=== PATIENT | male | born 1955 | race Caucasian/White ===

== ENCOUNTER → 2019-11-19 11:05 | Outpatient (BNVA) | payer MEDICARE, OTHER, SELFPAY | PROVIDERS: Family Provider Internal Medicine; PCP Internal Medicine; Referring Provider Internal Medicine; Visit Provider Specialist | DX: M25.512 Pain in left shoulder (principal); M19.012 Primary osteoarthritis, left shoulder | CPT/HCPCS: 73030 ==

== ENCOUNTER 2019-12-18 07:27 | Day surgery (SDC) | payer MEDICARE, OTHER, SELFPAY ==
[2019-12-17 14:11] VITALS: BMI 44.5
[2019-12-18] VITALS (14 sets, daily range): BP systolic 134–160; BP diastolic 78–103; PULSE 83–99; RESP 12–22; TEMP 36.4–36.8; O2SAT 92–98
[2019-12-18] MEDS: sodium chloride 0.9% 1,000 ML 30 ML IV (08:21)
[2019-12-18] MEDS: CELEcoxib 200 mg Capsule 400 MG PO (08:21)
[2019-12-18] MEDS: vancomycin 1,000 MG in sodium chloride 0.9% 250 ML 250 MG IV (08:46)
--- NOTE | 2019-12-18 08:52 | ANES.PREANE2 ---
Pre-Anesthetic Assessment Pre-Anesthetic Assessment: Height/Weight: Height 1.88 m Weight 157.397 kg Temp Pulse Resp BP Pulse Ox 98.3 F 97 18 141/103 95 12/18/19 08:10 12/18/19 08:10 12/18/19 08:10 12/18/19 08:10 12/18/19 08:10 Preop Diagnosis: Left shoulder partial rotator cuff tear and impingement Proposed Procedure: Operation Date: 12/18/19 09:40 Proposed Procedures p Shoulder Arthroscopy(Left) - Keren Ortiz MD s Debridement Upper Extremity(Left) - Keren Ortiz MD s Acromioplasty/open(Not Applicable) - MD sujey Holcomb Distal Clavicle Resection(Not Applicable) - Keren Ortiz MD s Rotator Cuff Repair(Left) - Keren Ortiz MD Last intake: Intake Last Liquid Date 12/17/19 Last Liquid Time 21:00 Last Solid Date 12/17/19 Last Solid Time 21:00 Social: Pack years: 4 Comment: quit 24 Exam: Pre-Anes Outpt Exam: alert, oriented x 3, clear to auscultation bilaterally and regular rate & rhythm Airway: Submandibular: WNL Cervical ROM: WNL MP: 2 CV/HEM: CV/HEM: HTN (14 y) : Comments: s/p nephrectomy living related onor Metabolic: Metabolic: Morbid obesity Anesthetic Plan: ASA status: 3 Meds/Allergies Current Medications: Current Medications Generic Name Dose Route Start Last Admin Trade Name Freq PRN Reason Stop Dose Admin Sodium Chloride 1,000 mls @ 30 ml s/hr 12/18/19 08:00 12/18/19 08:21 Sodium Chloride 0.9% IV 12/19/19 07:59 30 mls/hr .Q24H RAMOS Administration Vancomycin HCl 1,0 00 mg/ 250 mls @ 250 mls /hr 12/18/19 08:30 12/18/19 08:46 Sodium Chloride IV 12/18/19 09:29 250 mls/hr ONCE ONE Administration Protocol PFSH Anesthesia PFSH: Social History Smoking and tobacco status: never smoked Alcohol intake: never Data Anesthesia Cardiac Studies: No Data to Display
[2019-12-18] MEDS: fentaNYL 50 mcg/mL INJ 2mL 100 MCG IVP (09:15)
[2019-12-18] MEDS: midazolam 1 mg/mL INJ 5 ML 5 MG IVP (09:15)
--- NOTE | 2019-12-18 09:25 | ANES.PROC ---
Anesthesia Procedures Procedure/Date: 12/18/19 Left innerscalene block Procedure Narrative: R&B's of left innerscalene block for left shoulder surgery postop pain control disc'd. Verbal and written consent obtained. Versed 2+1+1+1mg, Fentanyl 50ug. US utilized to identify left innerscalene groove, LUL. Nerve stimulator used at 0.8mAMPs. Ropvicaine 0.5% + Lido 2% with epi in 3:1 mixture in 5cc increments for a total volume of 40cc. Nerve Block ^: Nerve Block 1: Main Anesthesia: general anesthesia Time Out Performed: Yes Consent: requested by attending/covering physician, from patient, risks and benefits reviewed and patient agrees to proceed Nerve block location: interscalene Anesthesia monitors applied: pulse oximetry and oxygen Nerve block position: supine Anesthetic Used: lidocaine 2% and with epi Amount of anesthesia used (mL): 40 Ultrasound used to: visualize and ID interscalene groove Nerve Stimulator Used?: Yes Interscalene/Femoral BLK: 2 stimuplex 22 g needle used for position and inplane approach Injection: neg aspiration of heme Patient Tolerated Procedure: well Complications: none
--- NOTE | 2019-12-18 09:55 | W.PM.OPSUD ---
Surgery/Procedure H&P Update DATE OF PROCEDURE: December 18, 2019 DATE H&P PERFORMED: 12/17/19 H&P UPDATE INFORMATION: I have reviewed H&P completed within last 30 days, I have examined patient prior to procedure and H&P is in [facility] [place] on date indicated PREOP DIAGNOSIS: Left shoulder partial rotator cuff tear and impingement PLANNED PROCEDURE: Operation Date: 12/18/19 09:40 Proposed Procedures p Shoulder Arthroscopy(Left) - Keren Ortiz MD s Debridement Upper Extremity(Left) - Keren Ortiz MD s Acromioplasty/open(Not Applicable) - Keren Ortiz MD s Distal Clavicle Resection(Not Applicable) - Keren Ortiz MD s Rotator Cuff Repair(Left) - Keren Ortiz MD
--- NOTE | 2019-12-18 12:05 | P.OP_ITS ---
Operative Report Date of procedure: December 18, 2019 Pre-op Diagnosis: Left shoulder partial rotator cuff tear, impingement, biceps tendinitis, DJD acromioclavicular joint, and labral tear Post-op Diagnosis: Left shoulder rotator cuff tear, impingement, biceps tendinit is, DJD acromioclavicular joint, and labral tear Procedure Done: Left shoulder open rotator cuff repair, acromioplasty, distal clavicle resection, biceps tenodesis, and arthroscopic debridement of labrum. Pathology: none sent Surgeon: Keren Ortiz [employer] Teacher: [facility] [place] Anesthesia: General (Intubated with interscalene block) Estimated blood loss (mL): 25 IV fluids (mL): 1,200 Complications: None Findings: Significant impingement with acromioclavicular joint degenerative osteoarthritis, complete rotator cuff tear over the biceps tendon, labral tear, and degenerative changes of the glenoid. Condition: stable Disposition: PACU (Then home with family) Brief History: This 64-year-old gentleman presented with the above complaints and findings on MRI. The patient had significant pain and limitations in his activities of daily living. He wished to proceed with operative intervention. Risks and complications were discussed with him, and the patient consented to proceed with surgical intervention. Procedure: The patient was brought to the operating theater and underwent general intubated anesthesia following an interscalene block placed in the preoperative holding area. The patient was placed in a beachchair position and subsequently the left upper extremity was prepped and draped in the usual fashion utilizing DuraPrep. The arm was draped free. A surgical pause was performed prior to commencement of the surgical procedure. At the time of the surgical pause, we confirmed the site and side of surgery as well as administration of appropriate preoperative antibiotics vancomycin 1 g. MRI was also reviewed at that time. Following the surgical pause, a spinal needle was placed into the shoulder joint and the shoulder was filled with lactated Ringer's. An arthroscopic evaluation was then accomplished. At the time of the arthroscopic evaluation, we found diffuse labral tearing. There were also degenerative changes over the glenoid, but there were not significant degenerative changes of the humeral head. There was no obvious biceps tendon tear. There was no obvious labral detachment. The shaver was then introduced and the labrum was debrided as was the glenoid. Following this, the shoulder was suctioned dry and arthroscopic instruments were removed. Attention was directed to the open portion of the procedure. An incision was made at approximately the level of the acromioclavicular joint extending across the anterolateral corner of the acromion and distally as necessary. Care was taken to avoid injury to the axillary nerve by limiting the distal extent of the incision. Dissection continued through skin and soft tissues using a scalpel. Hemostasis was obtained using electrocautery. Soft tissues were elevated off the acromion. An acromioplasty was then accomplished using a combination of a saw and a power rasp. With this, we were able to remove compression caused by the acromion. The rotator cuff was then evaluated to look for tears. There was a tear in the supraspinatus which was complete with very few fibers remaining. This was centered over the biceps tendon and there were some changes within the biceps tendon as well. The edges of this tear were freshened. The area was irrigated. 0 Ethibond was used to repair the rotator cuff, and with this, we also incorporated a biceps tenodesis given the significant biceps tendinitis noted on the MRI. After the rotator cuff had been thus addressed, the shoulder was placed through further range of motion to assu re there was no further evidence of rotator cuff tear. The acromioclavicular joint was exposed. A saw was then used to resect the distal clavicle without difficulty. The undersurface of the clavicle was palpated and was slightly further debrided. A power rasp was used to further smooth the area. When this was felt to be adequately resected, the wound was irrigated. Attention was then directed to closure. The wound was irrigated and closure was accomplished with 0 Vicryl in the capsular tissues overlying the acromioclavicular joint area as well as over the acromion and down into the deltoid muscle. 3-0 Monocryl was used to close the subcutaneous tissues followed by 4-0 Monocryl subcuticular closure. This was followed by Dermabond, Steri-Strips, Telfa, and Tegaderm. The patient was placed in a sling shot style sling and was returned to the recovery room in satisfactory condition. The patient will be discharged to home to follow-up with me in the office. There were no complications and no specimens.
[2019-12-18] MEDS: fentaNYL 50 mcg/mL INJ 2mL IVP ×2 (12:22→12:27)
--- NOTE | 2019-12-18 12:38 | SUR.PHASEI ---
1238 PT HAS SENSATION/MOVEMENT TO L. FINGERS, CAP REFILL <3 SEC
== END 2019-12-18 13:59 | disposition home or self-care (01) ==
PROVIDERS: Family Provider Internal Medicine; PCP Internal Medicine; Visit Provider Specialist
PROC: (CPT 29805; principal; 2019-12-18 09:40)
PROC: (CPT 23130; 2019-12-18 09:40)
PROC: (CPT 23120; 2019-12-18 09:40)
PROC: (CPT 23120; 2019-12-18 09:40)
DX: M75.102 Unspecified rotator cuff tear or rupture of left shoulder, not specified as traumatic (principal); M25.812 Other specified joint disorders, left shoulder; M75.22 Bicipital tendinitis, left shoulder; M19.012 Primary osteoarthritis, left shoulder; S43.402A Unspecified sprain of left shoulder joint, initial encounter; X58.XXXA Exposure to other specified factors, initial encounter; I10 Essential (primary) hypertension; E66.01 Morbid (severe) obesity due to excess calories; Z68.41 Body mass index [BMI] 40.0-44.9, adult; E11.9 Type 2 diabetes mellitus without complications
CPT/HCPCS: 23120; 23420; 29822; 12345; 96365; J0131; J0330; J1100; J2001; J2250; J2370; J2405; J2704; J2710; J2765; J2795; J3010; J3370; J3490; J7030; J7050

== ENCOUNTER → 2020-01-09 10:06 | Outpatient (BNVA) | payer MEDICARE, OTHER, SELFPAY | PROVIDERS: Family Provider Internal Medicine; PCP Internal Medicine; Visit Provider Specialist | DX: Z98.890 Other specified postprocedural states (principal); M24.112 Other articular cartilage disorders, left shoulder | CPT/HCPCS: 73030 ==

== ENCOUNTER 2020-02-12 07:16 | Outpatient (RCR) | payer MEDICARE, OTHER, SELFPAY | END 2020-02-14 23:59 | disposition home or self-care (01) | LOC: SPT 07:16 | PROVIDERS: Family Provider Internal Medicine; PCP Internal Medicine; Referring Provider Specialist; Visit Provider Specialist | DX: Z47.89 Encounter for other orthopedic aftercare (principal); M25.512 Pain in left shoulder | CPT/HCPCS: 97110; 97161 ==

== ENCOUNTER 2020-02-15 06:00 | Outpatient (RCR) | payer MEDICARE, OTHER, SELFPAY | END 2020-03-16 23:59 | disposition home or self-care (01) | LOC: SPT 06:00 | PROVIDERS: PCP Internal Medicine; Referring Provider Specialist; Visit Provider Specialist | DX: Z47.89 Encounter for other orthopedic aftercare (principal); M25.512 Pain in left shoulder; R53.1 Weakness | CPT/HCPCS: 97110 ==

== ENCOUNTER 2020-03-17 06:00 | Outpatient (RCR) | payer MEDICARE, OTHER, SELFPAY | END 2020-04-15 23:59 | disposition home or self-care (01) | LOC: SPT 06:00 | PROVIDERS: PCP Internal Medicine; Visit Provider Specialist | DX: Z47.89 Encounter for other orthopedic aftercare (principal); Z98.890 Other specified postprocedural states | CPT/HCPCS: 73560; 73565; 97110 ==

== ENCOUNTER → 2020-08-25 15:40 | Outpatient (BNVA) | payer MEDICARE, OTHER, SELFPAY | PROVIDERS: PCP Internal Medicine; Visit Provider Specialist | DX: M19.011 Primary osteoarthritis, right shoulder (principal); M25.511 Pain in right shoulder | CPT/HCPCS: 73030 ==

== ENCOUNTER 2020-10-13 06:00 | Outpatient (RCR) | payer MEDICARE, OTHER, SELFPAY | END 2020-10-16 23:59 | disposition home or self-care (01) | LOC: SPT 06:00 | PROVIDERS: PCP Internal Medicine; Referring Provider Specialist; Visit Provider Specialist | DX: M75.121 Complete rotator cuff tear or rupture of right shoulder, not specified as traumatic (principal); M19.011 Primary osteoarthritis, right shoulder | CPT/HCPCS: 97110; 97162 ==

== ENCOUNTER 2020-10-17 06:00 | Outpatient (RCR) | payer MEDICARE, OTHER, SELFPAY | END 2020-11-16 23:59 | disposition home or self-care (01) | LOC: SPT 06:00 | PROVIDERS: PCP Internal Medicine; Referring Provider Specialist; Visit Provider Specialist | DX: M19.011 Primary osteoarthritis, right shoulder (principal); M75.101 Unspecified rotator cuff tear or rupture of right shoulder, not specified as traumatic | CPT/HCPCS: 97110 ==

== ENCOUNTER 2020-11-17 06:00 | Outpatient (RCR) | payer MEDICARE, OTHER, SELFPAY | END 2020-12-04 15:44 | disposition home or self-care (01) | LOC: SPT 06:00 | PROVIDERS: PCP Internal Medicine; Referring Provider Specialist; Visit Provider Specialist | DX: M75.121 Complete rotator cuff tear or rupture of right shoulder, not specified as traumatic (principal); M19.011 Primary osteoarthritis, right shoulder | CPT/HCPCS: 97110 ==

== ENCOUNTER → 2020-11-24 08:44 | Outpatient (BNVA) | payer MEDICARE, OTHER, SELFPAY | PROVIDERS: PCP Internal Medicine; Visit Provider Specialist | DX: M25.532 Pain in left wrist (principal) | CPT/HCPCS: 73110 ==

== ENCOUNTER → 2021-01-15 09:24 | Outpatient (BNVA) | payer MEDICARE, OTHER, SELFPAY | PROVIDERS: PCP Internal Medicine; Visit Provider Specialist | DX: M17.11 Unilateral primary osteoarthritis, right knee (principal); M25.569 Pain in unspecified knee | CPT/HCPCS: 73560; 73565 ==

== ENCOUNTER 2022-06-29 12:40 | Outpatient (CLI) | payer MEDICARE, OTHER, SELFPAY ==
[2022-06-29 13:12] LABS: Basophils % 0.4 %; Eosinophils # 0.6 10^3/uL (0.0-0.8); Hematocrit 45.4 % (42.0-52.0); Hemoglobin 14.7 g/dL (11.7-16.6); Lymphocytes # 0.9 10^3/uL (0.8-4.8); Lymphocytes % 10.5 %; Mean Corpuscular HGB Conc 32.4 g/dL (30.0-36.0); Mean Corpuscular Hemoglobin 27.1 pg (28.0-34.0); Mean Corpuscular Volume 83.8 fl (80-94); Mean Platelet Volume 10.2 fL (7.4-10.4); Monocytes # 0.6 10^3/uL (0.2-0.9); Monocytes % 6.7 %; Neutrophils % 75.2 %; Nucleated Red Blood Cells % 0 %; Platelet Count 192 10^3/cmm (130-400); Red Blood Count 5.42 10^6/uL (4.1-5.3); Red Cell Distribution Width 15.9 % (12.1-15.1); White Blood Count 8.3 10^3/uL (4.0-10.0)
[2022-06-29 13:15] LABS: Erythrocyte Sedimentation Rate 27 mm/hr (0-10)
[2022-06-29 13:33] LABS: C Reactive Protein 16.9 mg/L (0.0-4.9); Uric Acid 5.3 mg/dL (3.4-7.0)
[2022-06-29 14:05] LABS: 25 Hydroxy Vitamin D > 100 ng/mL (30-100)
[2022-06-30 17:04] LABS: Anti-Nuclear Antibody Screen NEGATIVE (NEGATIVE)
== END 2022-06-29 12:41 | disposition home or self-care (01) ==
LOC: LAB 12:47
PROVIDERS: PCP Internal Medicine; Visit Provider Orthopaedic Surgery Hand Surgery
DX: E55.9 Vitamin D deficiency, unspecified (principal)
CPT/HCPCS: 36415; 82306; 84550; 85025; 85651; 86038; 86140; 86431

== ENCOUNTER → 2024-03-21 10:37 | Outpatient (BNVA) | payer MEDICARE, OTHER, SELFPAY | PROVIDERS: PCP Internal Medicine; Visit Provider Podiatrist Foot & Ankle Surgery | DX: L60.3 Nail dystrophy (principal); M72.2 Plantar fascial fibromatosis; E11.42 Type 2 diabetes mellitus with diabetic polyneuropathy; Z87.39 Personal history of other diseases of the musculoskeletal system and connective tissue; I73.9 Peripheral vascular disease, unspecified; M21.41 Flat foot [pes planus] (acquired), right foot; M21.42 Flat foot [pes planus] (acquired), left foot; Z79.84 Long term (current) use of oral hypoglycemic drugs; Z79.4 Long term (current) use of insulin | CPT/HCPCS: 11721; 99204 ==

== ENCOUNTER → 2024-06-19 07:46 | Outpatient (BNVA) | payer MEDICARE, OTHER, SELFPAY | PROVIDERS: PCP Internal Medicine; Visit Provider Podiatrist Foot & Ankle Surgery | DX: L60.3 Nail dystrophy (principal); E11.42 Type 2 diabetes mellitus with diabetic polyneuropathy; I73.9 Peripheral vascular disease, unspecified; M72.2 Plantar fascial fibromatosis; Z79.84 Long term (current) use of oral hypoglycemic drugs; Z79.4 Long term (current) use of insulin | CPT/HCPCS: 11721; 99213 ==

== ENCOUNTER → 2024-09-18 07:39 | Outpatient (BNVA) | payer MEDICARE, OTHER, SELFPAY | PROVIDERS: PCP Internal Medicine; Visit Provider Podiatrist Foot & Ankle Surgery | DX: L60.3 Nail dystrophy (principal); E11.42 Type 2 diabetes mellitus with diabetic polyneuropathy; M72.2 Plantar fascial fibromatosis; Z79.84 Long term (current) use of oral hypoglycemic drugs; Z79.4 Long term (current) use of insulin | CPT/HCPCS: 99213 ==

== ENCOUNTER → 2024-10-24 08:52 | Outpatient (BNVA) | payer MEDICARE, OTHER, SELFPAY | PROVIDERS: PCP Internal Medicine; Referring Provider Electrodiagnostic Medicine; Visit Provider Specialist | DX: S59.902A Unspecified injury of left elbow, initial encounter (principal); X50.9XXA Other and unspecified overexertion or strenuous movements or postures, initial encounter | CPT/HCPCS: 73080; 99214 ==

== ENCOUNTER 2024-10-26 08:49 | Outpatient (CLI) | payer MEDICARE, OTHER, SELFPAY ==
--- NOTE | 2024-10-26 09:15 | MRR_ITS ---
PROCEDURE INFORMATION: Exam: MR Left Upper Extremity Joint Without Contrast; Elbow Exam date and time: 10/26/2024 9:38 AM Age: 69 years old Clinical indication: Patient HX: Left elbow pain and bruising upper arm; Additional info: Possible biceps tendon tear TECHNIQUE: Imaging protocol: Magnetic resonance imaging of the left upper extremity without contrast. Exam focused on the elbow. COMPARISON: No relevant prior studies available. FINDINGS: Limitations: Study is limited due to obscuring artifact projecting over the posterior aspect of the elbow joint. Bones/joints: There are degenerative changes involving the radial humeral and ulnar humeral joint with mild irregularity of the articular margins and marginal spurring. There are a few tiny ossific densities along the medial and lateral epicondyle that may represent embedded loose bodies. No fracture, dislocation or malalignment detected. Ulnar (medial) collateral ligament: Unremarkable. No tear. Radial collateral ligament of the elbow: See Common extensor tendon finding. Annular ligament of the radius: Unremarkable. No tear. Tendon of the biceps brachii: Biceps tendon is intact. No evidence of tendon tear or significant tendinopathy. The Tendon of the brachialis: Unremarkable. No tear. Triceps tendon: Unremarkable. No tear. Common flexor tendon: There is some thickening and intermediate signal changes of the common flexor tendon at the humeral insertion site consistent with tendinopathy. No underlying tear detected. Common extensor tendon: Humeral insertion site of the common extensor tendon is poorly visualized and outwardly bowed due to fluid adjacent to the lateral epicondyle likely secondary to chronic partial tear. Radial collateral ligament cannot be identified and may also be torn. Soft tissues: There is a moderate-sized joint effusion with some thickening of synovial fold suggestive of chronic synovitis. There is mild superficial soft tissue swelling along the ulnar aspect of the elbow trivial patient's history may represent some bruising. MR/MR elbow LT wo con* [id number] IMPRESSION: 1. Negative for biceps tendon tear. 2. Lateral epicondylitis with chronic partial tear involving common extensor tendon insertion site that may involve the radial collateral ligament 3. Tendinopathy involving the common flexor tendon insertion site. No evidence of underlying tear. 4. Moderate degenerative changes at the elbow joint with loose bodies and joint effusion.
== END 2024-10-26 08:50 | disposition home or self-care (01) ==
LOC: RAD 08:49
PROVIDERS: PCP Electrodiagnostic Medicine; Visit Provider Specialist
DX: M77.12 Lateral epicondylitis, left elbow (principal); M66.232 Spontaneous rupture of extensor tendons, left forearm; M67.824 Other specified disorders of tendon, left elbow; M19.022 Primary osteoarthritis, left elbow; M24.022 Loose body in left elbow; M25.422 Effusion, left elbow
CPT/HCPCS: 73221

== ENCOUNTER → 2024-11-12 09:41 | Outpatient (BNVA) | payer MEDICARE, OTHER, SELFPAY | PROVIDERS: PCP Electrodiagnostic Medicine; Visit Provider Specialist | DX: S59.902D Unspecified injury of left elbow, subsequent encounter (principal); X58.XXXD Exposure to other specified factors, subsequent encounter | CPT/HCPCS: 99214 ==

== ENCOUNTER → 2025-02-04 08:54 | Outpatient (BNVA) | payer MEDICARE, OTHER, SELFPAY | PROVIDERS: PCP Electrodiagnostic Medicine; Visit Provider Specialist | DX: M17.11 Unilateral primary osteoarthritis, right knee (principal); E66.01 Morbid (severe) obesity due to excess calories; Z68.41 Body mass index [BMI] 40.0-44.9, adult | CPT/HCPCS: 73560; 73565; 99214 ==

== ENCOUNTER → 2025-03-19 07:32 | Outpatient (BNVA) | payer MEDICARE, OTHER, SELFPAY | PROVIDERS: PCP Electrodiagnostic Medicine; Visit Provider Podiatrist Foot & Ankle Surgery | DX: E11.42 Type 2 diabetes mellitus with diabetic polyneuropathy (principal); L60.3 Nail dystrophy; M21.41 Flat foot [pes planus] (acquired), right foot; M21.42 Flat foot [pes planus] (acquired), left foot; M20.21 Hallux rigidus, right foot; M20.22 Hallux rigidus, left foot; Z79.4 Long term (current) use of insulin; Z79.84 Long term (current) use of oral hypoglycemic drugs | CPT/HCPCS: 11721; 99213 ==

== ENCOUNTER → 2025-05-06 10:11 | Outpatient (BNVA) | payer MEDICARE, OTHER, SELFPAY | PROVIDERS: PCP Electrodiagnostic Medicine; Visit Provider Specialist | DX: M17.11 Unilateral primary osteoarthritis, right knee (principal); Z01.818 Encounter for other preprocedural examination; E66.01 Morbid (severe) obesity due to excess calories; Z68.41 Body mass index [BMI] 40.0-44.9, adult | CPT/HCPCS: 99214 ==

== ENCOUNTER 2025-05-31 06:54 | Outpatient (CLI) | payer MEDICARE, OTHER, SELFPAY ==
--- NOTE | 2025-05-31 07:15 | CT_ITS ---
WS: [id number] CT RIGHT knee, noncontrast HISTORY: M17.11 - Unilateral primary osteoarthritis, right knee TECHNIQUE: Protocol for KISHOR total knee replacement has been obtained. This includes axial imaging through the RIGHT hip, knee and ankle. DLP: 1096.43 mGy.cm COMPARISON: Radiograph 02/04/2025 Hips: Mild narrowing of the hip joints. No fractures. No destructive bone lesions. Mild prostate gland enlargement. Sigmoid diverticular disease. RIGHT knee: Advanced tricompartment osteoarthritis. Joint spaces are narrowed with osteophytes. No fractures. Moderate suprapatellar joint effusion. There are a few calcific densities within the joint effusion. RIGHT ankle: Advanced osteoarthritic changes at the ankle joint. Joint space is narrowed with osteophytes. No fracture. CT/CT knee RT wo con* [id number] IMPRESSION: CT imaging provided for [facility] robotic total knee replacement.
== END 2025-05-31 06:55 | disposition home or self-care (01) ==
LOC: RAD 06:55
PROVIDERS: PCP Electrodiagnostic Medicine; Visit Provider Specialist
DX: M17.11 Unilateral primary osteoarthritis, right knee (principal); N40.0 Benign prostatic hyperplasia without lower urinary tract symptoms; K57.30 Diverticulosis of large intestine without perforation or abscess without bleeding; M25.761 Osteophyte, right knee; M25.461 Effusion, right knee; M25.861 Other specified joint disorders, right knee
CPT/HCPCS: 73700

== ENCOUNTER 2025-06-03 14:50 | Outpatient (CLI) | payer MEDICARE, OTHER, SELFPAY ==
[2025-06-03 15:20] LABS: Hematocrit 46.8 % (37-53); Hemoglobin 15.20 g/dL (11.27-16.99); Mean Corpuscular HGB Conc 32.5 g/dL (30-55); Mean Corpuscular Hemoglobin 28.6 pg (27-33); Mean Corpuscular Volume 88.0 fl (82-101); Nucleated Red Blood Cells % 0 %; Platelet Count 194 10^3/cmm (157-399); Red Blood Count 5.32 10^6/uL (3.85-5.65); White Blood Count 9.02 10^3/uL (3.29-11.43)
[2025-06-03 15:26] LABS: Glucose Urine UA Negative (Normal); Nitrate Urine Negative (Negative); Specific Gravity, Urine 1.010 (1.005-1.030)
[2025-06-03 15:36] LABS: Alanine Aminotransferase 13 U/L (0-41); Albumin Level 4.3 g/dL (3.5-5.2); Alkaline Phosphatase 72 U/L (40-130); Anion Gap 14.1 (5-19); Aspartate Amino Transferase 17 U/L (0-40); Blood Urea Nitrogen 36 mg/dL (8-23); Calcium 9.9 mg/dL (8.5-10.5); Carbon Dioxide 28 mmol/L (22-29); Chloride 99 mmol/L (98-107); Globulin 2.8 g/dL (1.3-4.6); Glucose 79 mg/dL (65-115); Osmolality Calculated 291 mOsm/kg (285-295); Potassium 4.1 mmol/L (3.5-5.1); Sodium 137 mmol/L (136-145); Total Protein 7.1 g/dL (6.6-8.7)
[2025-06-03 15:42] LABS: Add Urine Microscopic? YES; UA Manual Slide Review YES
== END 2025-06-03 14:51 | disposition home or self-care (01) ==
PROVIDERS: PCP Electrodiagnostic Medicine; Visit Provider Specialist
DX: Z01.818 Encounter for other preprocedural examination (principal)
CPT/HCPCS: 36415; 80053; 81001; 85025

== ENCOUNTER → 2025-06-10 11:13 | Outpatient (BNVA) | payer MEDICARE, SELFPAY | PROVIDERS: PCP Electrodiagnostic Medicine; Visit Provider Family Medicine | DX: Z01.818 Encounter for other preprocedural examination (principal) | CPT/HCPCS: 93005 ==

== ENCOUNTER → 2025-06-18 07:42 | Outpatient (BNVA) | payer MEDICARE, OTHER, SELFPAY | PROVIDERS: PCP Electrodiagnostic Medicine; Visit Provider Podiatrist Foot & Ankle Surgery | DX: E11.42 Type 2 diabetes mellitus with diabetic polyneuropathy (principal); L60.3 Nail dystrophy; Z79.4 Long term (current) use of insulin; E11.8 Type 2 diabetes mellitus with unspecified complications; Z79.84 Long term (current) use of oral hypoglycemic drugs | CPT/HCPCS: 11721 ==

== ENCOUNTER 2025-07-02 10:55 | Observation (INO) | payer MEDICARE, OTHER, SELFPAY ==
[2025-07-02] VITALS (14 sets, daily range): BP systolic 93–144; BP diastolic 53–78; PULSE 68–84; RESP 16–18; TEMP 36.1–36.8; O2SAT 91–96; BMI 39.9; BMI 40.9
[2025-07-02] MEDS: acetaminophen 1,000 MG/100 ML PIGGYBACK 400 MG IV ×3 (06:27→22:09)
--- NOTE | 2025-07-02 07:01 | W.PM.OPSFHP ---
Same Day Surgery H&P Indication for Procedure/HPI DATE OF PROCEDURE: July 02, 2025 CHIEF COMPLAINT/INDICATIONFOR SURGICAL PROCEDURE: Primary osteoarthritis right knee PREOP DIAGNOSIS: Primary osteoarthritis right knee PLANNED PROCEDURE: Operation Date: 07/02/25 07:00 Proposed Procedures p RIGHT Baldemar Robot Total Knee Arthroplasty(Right) - Keren Ortiz MD Medications/Allergies* Home Medications ?Medication ?Instructions ?Recorded ?Confirmed ?Type giszqykziyvi-wffvnfpa-iwcjpt 1 tab PO DAILY 11/19/19 07/01/25 History tablet (Multivitamin 50 Plus tablet) insulin degludec 200 unit/mL (3 50 unit SUBCUT DAILY 03/21/24 07/01/25 History mL) subcutaneous pen (Tresiba FlexTouch U-200 insulin) atorvastatin 40 mg tablet 40 mg PO QPM 05/06/25 07/01/25 History blood sugar diagnostic (OneTouch #10 ea 05/06/25 06/18/25 History Verio test strips) pen needle, diabetic 31 gauge x #1,200 ea 05/06/25 06/18/25 History 5/16 allopurinol 100 mg tablet 400 mg PO DAILY 06/10/25 07/01/25 History amlodipine 10 mg tablet 5 mg PO DAILY 06/10/25 07/01/25 History dulaglutide 1.5 mg/0.5 mL 1.5 mg SUBCUT Q7D 06/10/25 07/01/25 History subcutaneous pen injector (Trulicity) lisinopril 20 2 tab PO DAILY 06/10/25 07/01/25 History mg-hydrochlorothiazide 12.5 mg tablet metformin 500 mg tablet,extended 500 mg PO BID 06/10/25 07/01/25 History release 24 hr cetirizine 10 mg tablet (Zyrtec) 10 mg PO DAILY 07/01/25 07/01/25 History Allergies/Adverse Reactions Allergy/AdvReac Type Severity Reaction Status Date / Time codeine Allergy Unknown Verified 06/18/25 07:47 penicillin V Allergy algy-rash Verified 06/18/25 07:47 pseudoephedrine (From Allergy Unknown Verified 06/18/25 07:47 Sudafed) Current Medications: Generic Name Dose Route Start Last Admin Trade Name Freq PRN Reason Stop Dose Admin Sodium Chloride 1,000 mls @ 30 mls/hr 07/02/25 06:00 07/02/25 06:27 Sodium Chloride 0.9% IV 07/03/25 05:59 30 mls/hr .Q24H RAMOS Administration Pertinent History/Comorbid Conditions* Medical History (Updated 03/19/25 @ 08:16 by Juan Francisco Hdez DPM) Psoriasis Solitary kidney Degenerative spondylolisthesis HTN (hypertension) Type 2 diabetes mellitus without complication, without long-term current use of insulin Surgical History (Updated 01/15/21 @ 10:27 by Keren Ortiz MD) Status post total left knee replacement not using cement Hx of decompression of ulnar nerve Hx of kidney removal History of carpal tunnel release Family History (Updated 11/19/19 @ 13:17 by Aggie Delatorre LPN) Denies family history of Diabetes CAD (coronary artery disease) Clotting disorder Dementia Hyperlipidemia Psychiatric illness Chronic kidney disease (CKD) Suicide Anesthesia complication Bleeding disorder Family history of premature coronary artery disease Lung disease Cancer Hypertension Stroke Social History Smoking and tobacco/nicotine status: never used tobacco/nicotine Alcohol intake: never Substance/Drug Use: never Pertinent Exam Findings alert, oriented x 3, clear to auscultation bilaterally, regular rate & rhythm, operative site marked and procedure specific exam findings (Effusion right knee, pain with range of motion) Recommendations Risks and benefits of procedure reviewed and Patient/family agree to proceed Surgery/Procedure today Coding Level of Care Code Acute Code for Giovanny Prabhakar
[2025-07-02] MEDS: ceFAZolin 3,000 MG in sodium chloride 0.9% (plus) 100 ML 200 MG IV (07:02)
--- NOTE | 2025-07-02 07:14 | ANES.PREANE2 ---
Pre-Anesthetic Assessment Height/Weight: Height 1.88 m Weight 141.067 kg O2 Del Method Room Air 07/02/25 06:22 Preop Diagnosis: Primary osteoarthritis right knee Operation Date: 07/02/25 07:00 Proposed Procedures p RIGHT Baldemar Robot Total Knee Arthroplasty(Right) - Keren Ortiz MD Familial anesthetic complications: None Was Beta Darlene taken within 24 hours: N/A Was Clonidine taken within 24 hours: N/A Last intake: Intake Last Liquid Date 07/01/25 Last Liquid Time 23:00 Last Solid Date 07/02/25 Last Solid Time 19:00 Social No alcohol and No tobacco Exam alert, oriented x 3, clear to auscultation bilaterally and regular rate & rhythm Airway Mallampati: Class III Dentition: full CV/HEM Hypertension one kidney s/p donation Metabolic Diabetes Mellitus, Hyperlipidemia and Morbid Obesity Anesthetic Plan ASA status: 3 Anesthesia: Regional (specify below) Risk of > 500 ml blood loss (7ml/kg in children): No Medications/Allergies Home Medications ?Medication ?Instructions ?Recorded ?Confirmed ?Last Taken ?Type avwxeibmbiwf-khuprwkt-kojyfz 1 tab PO DAILY 11/19/19 07/01/25 07/01/25 History tablet (Multivitamin 50 Plus tablet) celecoxib 200 mg capsule (Celebrex) 200 mg PO BID #60 caps 12/18/19 07/01/25 06/24/25 Rx insulin degludec 200 unit/mL (3 50 unit SUBCUT DAILY 03/21/24 07/01/25 07/01/25 History mL) subcutaneous pen (Tresiba FlexTouch U-200 insulin) Custom molded accommodative #1 ea 03/19/25 06/18/25 Unknown Rx insoles with orthopedic boot atorvastatin 40 mg tablet 40 mg PO QPM 05/06/25 07/01/25 07/01/25 History blood sugar diagnostic (OneTouch #10 ea 05/06/25 06/18/25 Unknown History Verio test strips) pen needle, diabetic 31 gauge x #1,200 ea 05/06/25 06/18/25 Unknown History 03/01 allopurinol 100 mg tablet 400 mg PO DAILY 06/10/25 07/01/25 07/01/25 History amlodipine 10 mg tablet 5 mg PO DAILY 06/10/25 07/01/25 07/01/25 History dulaglutide 1.5 mg/0.5 mL 1.5 mg SUBCUT Q7D 06/10/25 07/01/25 06/19/25 History subcutaneous pen injector (Trulicity) lisinopril 20 2 tab PO DAILY 06/10/25 07/01/25 07/01/25 History mg-hydrochlorothiazide 12.5 mg tablet metformin 500 mg tablet,extended 500 mg PO BID 06/10/25 07/01/25 07/01/25 History release 24 hr cetirizine 10 mg tablet (Zyrtec) 10 mg PO DAILY 07/01/25 07/01/25 07/01/25 History Allergies Allergy/AdvReac Type Severity Reaction Status Date / Time codeine Allergy Unknown Verified 06/18/25 07:47 penicillin V Allergy algy-rash Verified 06/18/25 07:47 pseudoephedrine (From Allergy Unknown Verified 06/18/25 07:47 Sudafed) Current Medications Generic Name Dose Route Start Last Admin Trade Name Freq PRN Reason Stop Dose Admin Sodium Chloride 1,000 mls @ 30 mls/hr 07/02/25 06:00 07/02/25 06:27 Sodium Chloride 0.9% IV 07/03/25 05:59 30 mls/hr .Q24H RAMOS Administration PFSH Anesthesia Medical History Psoriasis Solitary kidney Degenerative spondylolisthesis HTN (hypertension) Type 2 diabetes mellitus without complication, without long-term current use of insulin Surgical History Status post total left knee replacement not using cement Hx of decompression of ulnar nerve Hx of kidney removal History of carpal tunnel release Family History Denies family history of Diabetes CAD (coronary artery disease) Clotting disorder Dementia Hyperlipidemia Psychiatric illness Chronic kidney disease (CKD) Suicide Anesthesia complication Bleeding disorder Family history of premature coronary artery disease Lung disease Cancer Hypertension Stroke Social History Smoking and tobacco/nicotine status: never used tobacco/nicotine Alcohol intake: never Substance/Drug Use: never Anesthesia Procedures Nerve Block Nerve Block 1: Main Anesthesia: spinal anesthesia block Time Out Performed: Yes Consent: requested by attending/covering physician, from patient, from other, risks and benefits reviewed and patient agrees to proceed Nerve block location: adductor canal (R) Anesthesia monitors applied: pulse oximetry, EKG, BP cuff and oxygen Nerve block position: supine Anesthetic Used: ropivicaine 0.5% (30 ml) and with decadron (4 mg) Ultrasound used to: recognize landmarks and visualize and ID femerol nerve Nerve Stimulator Used?: No Interscalene/Femoral BLK: 4 stimuplex 21 g needle used for position and inplane approach, visualize local anesthetic spread and no vascular puncture identified Injection: neg aspiration of heme Patient Tolerated Procedure: well Complications: none
[2025-07-02] MEDS: tranexamic acid 1,000 mg/10mL SDV 1000 MG IV (07:55)
[2025-07-02] MEDS: ceFAZolin 2,000 mg SDV 2000 MG IRRIGATION (08:22)
--- NOTE | 2025-07-02 10:53 | P.OP_ITS ---
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 flexion contracture Post-op findings: Severe flexion contracture with large osteophytes and bone loss Procedure done: Right total knee arthroplasty with Baldemar guidance Implants: The Petty total knee system with a size 8 triathlon beaded cruciate retaining femur right, a triathlon titanium tibial component size 7 beaded, a triathlon X3 tibial bearing CS insert size 7 x 11 mm and a beaded triathlon titanium a symmetric patella size 38 x 11 mm Specimens removed/disposition: Bone, disposed of Pathology: None Surgeon: Keren Ortiz MD Talk Show Host: Christina Fitzpatrick, nurse practitioner, who services were required for positioning, retraction, completion of the surgical procedure, and closure. Anesthesia: Spinal (With MAC and preoperative adductor block, ASA 3) Estimated blood loss (mL): 470 Tourniquet time (min): 0 (Not utilized) IV fluids (mL): 1,600 Urine output (mL): 225 Complications: None Findings: Severe degenerative osteoarthritis with preoperative 16 degree flexion contracture and varus deformity, large osteophytes with complete denudement of bone Condition: stable Disposition: PACU (Then to floor for postoperative rehabilitation and pain management) Brief History: This 70-year-old gentleman presents today for right total knee arthroplasty. He has a severe flexion contracture as well as varus deformity. He has been unable to ambulate well. He feels that the knee is worsening and spite of significant nonoperative measures including Celebrex twice daily, injection therapies, and weight loss. Patient previously underwent left total knee arthroplasty in 2019, and he has done well following this. He wished to proceed with right total knee arthroplasty. Risks and complications were discussed with him, consents were signed preoperatively. He was seen by Dr. Araujo for preoperative optimization as well. Procedure: The patient was brought to the operating theater, and after undergoing spinal anesthesia with preoperative adductor block, ASA 3, the right lower extremity was prepped with Dura-Prep and draped in usual fashion following placement of a tourniquet high on the leg. The leg was then draped free.? Tourniquet was not elevated throughout the surgical procedure. Prior to commencement of the procedure, a surgical pause was performed, and at the time of the surgical pause, we confirmed the site and side of surgery. Additionally, we confirmed the appropriate and timely administration of preoperative antibiotics, Ancef 2 g.? The availability of equipment was confirmed, and the patient's identity was verbalized as well. Following the surgical pause, an incision was made centering over the patella continuing proximally and distally as necessary to allow access to the knee joint. Prior to incision, assessment was made of the patient's leg, and there was noted to be 16 degree flexion contracture with a significant varus deformity. Dissection continued through skin and soft tissues using a scalpel. Hemostasis was obtained using electrocautery. The skin incision was followed by a median parapatellar arthrotomy. The leg was extended and the patella was able to be displaced laterally.? Appropriate arrays and markers were placed in appropriate position for use of the Baldemar.? Preoperative planning had been accomplished and was discussed in detail with the Baldemar merchandiser retail representative.? Intraoperative mapping of the femur and tibia was accomplished after the arrays were placed.? Internal markers were also placed.? Once we had accomplished the Baldemar mapping, we began the appropriate resections for placement of the prosthesis.? The plan was for a cruciate retaining right total knee arthroplasty. Retraction was established using manual retraction by surgical technicians and also the Baldemar leg positioner and retractors.? The knee was evaluated.? There was significant osteoarthritic change with large osteophytes, a 16 degree flexion contracture, and a significant varus deformity.? Intraoperative planning was adjusted based on this preoperative flexion contracture with significant laxity laterally compared to medially secondary to varus deformity. Appropriate bone resection was accomplished using the Baldemar.? The femur was sized to a size 8.? Following femoral cuts, attention was directed to the tibia.? Osteophytes were removed prior to this portion of the procedure.? We had performed a medial release at the beginning of the procedure to allow for placement of the array.? Proximal tibia was evaluated, and it was felt that appropriate size for the tibia was a size 7.? The size 7 tray was noted to fit nicely with good coverage.? Rim fit was accomplished with the size 7. A trial reduction was accomplished after osteophytes as well as the medial and lateral menisci had been removed.? We had removed the anterior cruciate ligament at the beginning of the case and preserved the posterior cruciate ligament.? Trial reduction was accomplished with a size 8 femoral cruciate retaining component, a size 7 tibial tray and a size 7 CS tibial bearing insert which was 9 mm thickness. There was felt to be too much laxity with the knee in extension, and trial reductions were accomplished with both the 10 mm and 11 mm inserts. We did recut the tibia as initially, there was remaining flexion contracture. With this configuration of a size 8 femur, a size 7 tibia with a 11 mm insert, the knee was noted to be well-balanced. Alignment was felt to be appropriate as well.? Trial components were removed after the femur had been drilled.? Prior to removal of the tibial tray which had been pinned in position with appropriate rotation as determined by the Baldemar plan, we broached the tibia.? Subsequently, the 4 drill holes were made for the prosthetic component.? All trial components were removed, and the wound was irrigated.? Plans were made for insertion of the prosthetic components.? Prior to this, the patella was manually prepared.? After resection of the articular surface with the jigging system, it was measured and measured a 38 mm patella.? We resected approximately 11 mm of patella.? Patellar height was restored with the patellar component. Once again, the wound was irrigated. The Tritanium tibia was impacted into position.? The beaded femur was then impacted into position in a cementless fashion. The CS tibial insert was placed prior to placement of the femoral component. The patella was pressed into position with a patellar clamp.? The knee was then copiously irrigated with betadine and saline and suctioned dry. Attention was then directed to closure. Closure was accomplished with 0 Vicryl in the fascial tissues.? The suture line of 0 Vicryl was supplemented with strata fix, #1, with a running suture from proximal to distal and a second running stitch from distal to proximal.? This was followed by Surgiflo and vancomycin powder.? Following this, a 2-0 Strata Fix was used in the subcutaneous tissues, and the skin was closed with 3-0 Strata fix.? Care was taken to assure an excellent subcutaneous as well as skin closure.? A sterile dressing was then placed consisting of Dermabond Prineo, OpSite, ABD, sterile soft roll, and an Alli wrap including over the foot. The patient was returned the Recovery Room in a satisfactory condition. X-rays were obtained and reviewed there.? The patient will be discharged to the floor for postoperative rehabilitation and pain management. Related Problem List Diagnoses 1. Primary osteoarthritis of right knee: 2. Flexion contracture of right knee: 3. Varus deformity, not elsewhere classified, right knee:
--- NOTE | 2025-07-02 11:02 | XR_ITS ---
WS: [id number] XR knee RT 1-2V 90836 REASON FOR EXAM: Status post total knee arthroplasty FINDINGS: Total right knee arthroplasty. Components of the arthroplasty are intact and in proper position and alignment. No focal bony abnormality. XR/XR knee RT 1-2V 10245 IMPRESSION: Total right knee arthroplasty without abnormality.
--- NOTE | 2025-07-02 11:15 | ANE.PACU2 ---
Inpatient post-anesthesia follow up: Airway intact: Yes Vital signs: Temperature 97.4 F Pulse Rate 77 Respiratory Rate 16 Blood Pressure 96/61 Pulse Oximetry 92 Oxygen Delivery Me thod Room Air Oxygen Flow Rate Fraction of Inspir ed Oxygen Hydration adequate: Yes Nausea and vomiting: No Pain level: 1 Mental status: Baseline
[2025-07-02] MEDS: tranexamic acid 1,000 MG/100 ML PREMIX 600 MG IV (12:49)
[2025-07-02] MEDS: chlorhexidine gluconate 0.12% Btl 473 mL 30 ML MUCOUS MEM ×3 (12:50→20:25)
[2025-07-02] MEDS: ceFAZolin 3,000 MG in sodium chloride 0.9% (100 ml) 100 ML 200 MG IV ×2 (14:22→22:09)
[2025-07-02] MEDS: sennosides-docusate Tablet 2 TAB PO (17:15)
[2025-07-02] MEDS: mupirocin oint 22 gm 1 APPLIC NASAL (17:15)
[2025-07-02] MEDS: oxyCODONE 5 mg IR Tab/Cap PO ×2 (17:18→22:08)
[2025-07-03] VITALS (9 sets, daily range): BP systolic 105–148; BP diastolic 66–82; PULSE 73–95; RESP 16–18; TEMP 36.3–36.6; O2SAT 94–96
--- NOTE | 2025-07-03 00:37 | PC.NURSE ---
Unable to assess R knee for edema, color, warmth due to wrap in place. Wrap is dry and intact with ice pack placed on top for pain and comfort. Pulses normal and sensation is WNL per patient, patient can wiggle toes.
[2025-07-03] MEDS: oxyCODONE 5 mg IR Tab/Cap PO ×4 (02:07→14:43)
[2025-07-03 05:13] LABS: Hematocrit 40.4 % (37-53); Hemoglobin 12.90 g/dL (11.27-16.99); Mean Corpuscular HGB Conc 31.9 g/dL (30-55); Mean Corpuscular Hemoglobin 28.3 pg (27-33); Mean Corpuscular Volume 88.6 fl (82-101); Nucleated Red Blood Cells % 0 %; Platelet Count 174 10^3/cmm (157-399); Red Blood Count 4.56 10^6/uL (3.85-5.65); White Blood Count 11.50 10^3/uL (3.29-11.43)
[2025-07-03 05:44] LABS: Anion Gap 16.1 (5-19); Blood Urea Nitrogen 34 mg/dL (8-23); Calcium 8.9 mg/dL (8.5-10.5); Carbon Dioxide 27 mmol/L (22-29); Chloride 101 mmol/L (98-107); Creatinine Clr Calc Pharmacy 54.3714; Glucose 156 mg/dL (65-115); Osmolality Calculated 299 mOsm/kg (285-295); Potassium 5.1 mmol/L (3.5-5.1); Sodium 139 mmol/L (136-145)
--- NOTE | 2025-07-03 05:47 | PC.NURSE ---
Mayberry catheter removed per protocol orders in DEC, fully intact, no complications. Prior to removal, 150 mL of pale yellow urine drained from catheter bag. Patient tolerated procedure well. No signs of discomfort or distress noted. Patient given a urinal and educated to report any difficulties voiding. Call light, belongings in reach, bed locked lowest position, SR up x2.
[2025-07-03] MEDS: acetaminophen 1,000 MG/100 ML PIGGYBACK 400 MG IV (06:21)
[2025-07-03] MEDS: ceFAZolin 3,000 MG in sodium chloride 0.9% (100 ml) 100 ML 200 MG IV (07:04)
[2025-07-03] MEDS: sennosides-docusate Tablet 2 TAB PO (08:26)
[2025-07-03] MEDS: multivitamin therapeutic Tablet 1 TAB PO (08:27)
[2025-07-03] MEDS: mupirocin oint 22 gm 1 APPLIC NASAL (08:28)
[2025-07-03] MEDS: chlorhexidine gluconate 0.12% Btl 473 mL 30 ML MUCOUS MEM (08:28)
--- NOTE | 2025-07-03 10:19 | PC.CHAP ---
Pastoral Care Encounter/Spiritual Assessment Type of Contact [] Declined group fitness assistant department head visit [] Patient/Family/Request visit [] Outpatient visit [] Follow-up visit [] Physician referral [] Code/Alert [x] Routine visit [] Staff referral [] Actively dying [] Patient sleeping [x] Family support [] [] Out of room [] Palliative care [] [] Receiving care in room [] Pre-surgical visit [] Trauma [] Long length of stay [] ICU visit [] Other: Relational/Emotional Strength [x] Patient feels connected with others/family/visitors/staff [] Distress [] Loneliness/isolation [] Abandonment Spirituality of Patient [x] Person of Chela [] Attends Pentecostalism of their [place] [x] Believes in Prayer [] Reads Bible or Roman Catholic materials [] There are Spiritual issues to be addressed Hot Dip Plater Interventions [x] Prayer [x] Active listening [] Non-anxious presence [x] Spiritual/emotional support [] Crisis/trauma care [] Spiritual counseling [] Bereavement support [] Provided bereavement packet [] Provided Bible/devotional materials [] Provided toy/stuffed animal, coloring book to patient or family member [] Provided Communion [] Anointing/Line [place] [] Salvation [x] Completed spiritual assessment [] Other: Impact on Illness or Injury [] Angry [] Fearful [] Anxious [] Often cries [] Exhaustion [] Unable to work [] Unable to attend hoahaoism [] Unable to walk/stand [] Unable to read [] Unable to drive [] Unable to eat/drink [] Unable to sleep [] Unable to be with family [] Patient intubated [] Other: Summary Time spent with patient 10 min
--- NOTE | 2025-07-03 13:40 | PM.DCS ---
Discharge Providers Date of Admission: 07/02/25 10:55 Date of Discharge: July 03, 2025 Attending Provider at Admission: Keren Ortiz MD Attending Provider at Discharge: Keren Ortiz MD Primary Care Provider: Ab Urena DO Diagnoses at Discharge Discharge Diagnosis 1. Status post total right knee replacement not using cement: 2. Primary osteoarthritis of right knee: 3. Flexion contracture of right knee: 4. Varus deformity, not elsewhere classified, right knee: Reason for Visit Reason for Visit: M17.11 Brief History: This 70-year-old gentleman presents today for right total knee arthroplasty. He has a severe flexion contracture as well as varus deformity. He has been unable to ambulate well. He feels that the knee is worsening and spite of significant nonoperative measures including Celebrex twice daily, injection therapies, and weight loss. Patient previously underwent left total knee arthroplasty in 2019, and he has done well following this. He wished to proceed with right total knee arthroplasty. Risks and complications were discussed with him, consents were signed preoperatively. He was seen by Dr. Araujo for preoperative optimization as well. Hospital Course Hospital Course Patient was admitted under observation status following same-day surgery with Baldemar guidance for right total knee arthroplasty. The patient did well with physical therapy the day following surgery. He was up the day of surgery. When he was seen in his room, he was comfortable and managed on oral pain medications. There was no evidence of DVT. The patient was discharged to home with home physical therapy to follow-up with me in the office as scheduled. Physical Exam Const: COMMON NORMALS: no acute distress, average body habitus, patient oriented x3 and alert GENERAL APPEARANCE: cooperative and comfortable ORIENTATION/CONSCIOUSNESS: Yes awake HENMT: COMMON NORMALS: normocephalic and atraumatic HEAD & SCALP: normocephalic and atraumatic Eye: GENERAL EYE: appearance normal, both eyes and all related structures Chest: COMMONS NORMALS: normal inspection of the chest Resp: COMMON NORMALS: normal respiratory effort EFFORT & INSPECTION: Yes able to speak in complete sentences and Yes symmetric chest movement Extremity: RIGHT LOWER EXTREMITY: Yes knee joint (Dressing is dry and intact.) Right knee: Yes inspection (Minimal to no ecchymosis), Yes palpation (Minimal tenderness), Yes ROM (Almost able to straight leg raise) and Yes neurovascular exam (Intact distally with no evidence of DVT) Neuro: COMMON NORMALS: patient oriented x3 SENSORIUM/ORIENTATION: Yes alert Psych: COMMON NORMALS: mental status grossly normal APPEARANCE: Yes grossly normal ATTITUDE: Yes calm and Yes engaged ATTENTION/CONCENTRATION: Yes attention grossly intact Skin: COMMON NORMALS: no rashes or lesions noted GENERAL SKIN EXAM: no rashes or lesions noted Urinary Catheter Management: Mayberry: Cath Placed During This Visit: yes, but has since been removed by the nurse Reason for Continuing Indwelling Catheter: Decision to DC Catheter Urinary Catheter Date of Insertion: 07/02/25 Urinary Catheter Time of Insertion: 07:19 Date Urinary Catheter Removed: 07/03/25 Time Urinary Catheter Discontinued: 05:45 Discharge Data Studies Completed and Pending Completed Studies During Hospitalization Category Date Time Status XR knee RT 1-2V 09379 Urgent Exams 07/02/25 11:02 Completed Radiology Impressions Knee X-Ray 07/02/25 11:02 IMPRESSION: Total right knee arthroplasty without abnormality. Laboratory Results WBC 11.50 10^3/uL (3.29-11.43) H 07/03/25 04:50 RBC 4.56 10^6/uL (3.85-5.65) 07/03/25 04:50 Hgb 12.90 g/dL (11.27-16.99) 07/03/25 04:50 Hct 40.4 % (37-53) 07/03/25 04:50 MCV 88.6 fl (82-101) 07/03/25 04:50 MCH 28.3 pg (27-33) 07/03/25 04:50 MCHC 31.9 g/dL (30-55) 07/03/25 04:50 RDW 15.3 % (12.1-15.1) H 07/03/25 04:50 Plt Count 174 10^3/cmm (157-399) 07/03/25 04:50 MPV 10.0 fL (7.4-10.4) 07/03/25 04:50 Neut % (Auto) 85.6 % 07/03/25 04:50 Lymph % (Auto) 6.3 % 07/03/25 04:50 [place] % (Auto) 6.9 % 07/03/25 04:50 Eos % (Auto) 0.4 % 07/03/25 04:50 Baso % (Auto) 0.2 % 07/03/25 04:50 Neut # (Auto) 9.85 10^3/uL (1.8-7.7) H 07/03/25 04:50 Lymph # (Auto) 0.7 10^3/uL (0.8-4.8) L 07/03/25 04:50 [place] # (Auto) 0.8 10^3/uL (0.2-0.9) 07/03/25 04:50 Eos # (Auto) 0.1 10^3/uL (0.0-0.8) 07/03/25 04:50 Baso # (Auto) 0.0 10^3/uL (0.0-0.1) 07/03/25 04:50 Nucleated RBC % (auto) 0 % 07/03/25 04:50 Nucleated RBCs # 0.0 /100WBC 07/03/25 04:50 Sodium 139 mmol/L (136-145) 07/03/25 04:50 Potassium 5.1 mmol/L (3.5-5.1) 07/03/25 04:50 Chloride 101 mmol/L (98-107) 07/03/25 04:50 Carbon Dioxide 27 mmol/L (22-29) 07/03/25 04:50 Anion Gap 16.1 (5-19) 07/03/25 04:50 BUN 34 mg/dL (8-23) H 07/03/25 04:50 Creatinine 1.9 mg/dL (0.7-1.2) H 07/03/25 04:50 GFR Calculation Not Reportable 07/03/25 04:50 Glucose 156 mg/dL (65-115) H 07/03/25 04:50 POC Glucose 176 mg/dL (70-110) H 07/02/25 16:27 Calculated Osmolality 299 mOsm/kg (285-295) H 07/03/25 04:50 Calcium 8.9 mg/dL (8.5-10.5) 07/03/25 04:50 Vitals Last Vital Signs Temp 97.3 F L 07/03/25 11:29 Pulse 95 07/03/25 11:29 Resp 17 07/03/25 11:29 BP 105/66 07/03/25 11:29 Pulse Ox 94 07/03/25 11:29 O2 Del Method Room Air 07/03/25 11:29 Discharge Plan Discharge Patient Disposition: Home Health Service Condition: Stable Prescriptions: New acetaminophen 500 mg Tablet 1,000 mg PO Q8H 15 Days Qty: 90 0RF aspirin 325 mg Tablet,Delayed Release (Dr/Ec) 325 mg PO DAILY 30 Days Qty: 30 0RF oxycodone 5 mg Tablet 5 mg PO Q4H 7 Days Qty: 42 0RF cephalexin 500 mg capsule 500 mg PO QID 10 Days Qty: 40 0RF Continued Multivitamin 50 Plus Tablet 1 tab PO DAILY allopurinol 100 mg tablet 400 mg PO DAILY amlodipine 10 mg tablet 5 mg PO DAILY lisinopril-hydrochlorothiazide 20-12.5 mg tablet 2 tab PO DAILY insulin degludec [Tresiba FlexTouch U-200] 200 unit/mL (3 mL) insulin pen 50 unit SUBCUT DAILY (DME) Custom molded accommodative insoles with orthopedic boot See Rx Instructions .Route .MEDSUPPLY Qty: 1 0RF Rx Instructions: As directed by Alina Faith atorvastatin 40 mg tablet 40 mg PO QPM (DME) OneTouch Verio test strips Strip See Rx Instructions .ROUTE .MEDSUPPLY Qty: 10 Rx Instructions: As directed (DME) pen needle, diabetic 31 gauge x 5/16 needle See Rx Instructions .ROUTE .MEDSUPPLY Qty: 1200 Rx Instructions: As directed metformin 500 mg tablet extended release 24 hr 500 mg PO BID Trulicity 1.5 mg/0.5 mL pen injector 1.5 mg SUBCUT Q7D celecoxib [Celebrex] 200 mg capsule 200 mg PO BID Qty: 60 0RF cetirizine [Zyrtec] 10 mg Tablet 10 mg PO DAILY Discharge Order = DC NOW: Discharge Order (Routine); Ordered 07/03/25 Ordered By: Keren Ortiz Referrals: [facility] [Outside] Keren Ortiz MD [Physician, Orthopedics] - 07/15/25 9:00 am Discharge Diet: Advance as tolerated and Usual diet Discharge Activity: Limit activity as instructed, Use walker/crutches as instructed and As per PT/OT instructions Patient Instructions: Cephalexin (By mouth), Aspirin (By mouth), Oxycodone, Slow Release (By mouth), Acute Wound Care (DC), Total Knee Replacement (GEN), Opioid Safety, Post Anesthesia Care, Patient Portal & Geovani Instructions Activity Restrictions/Additional Instructions: Ice and elevation to right lower extremity. Weightbearing as tolerated. Physical therapy for gait training, ambulation, and strengthening. Maintain dressing until it comes off on its own. You may shower and get the knee wet as long as the dressing does not leak and allow water to go to the wound. Do not take a shower, get in a pool, or place your knee in other standing water. Discharge Attestations Time Spent in Discharge Care*: greater than 30 min Specific Discharge Activities: educating patient, documenting/other paperwork and evaluating patient/reviewing data Quality Metrics Clinical Quality Measures [ No reported AMI, CVA or VTE this stay] Coding Level of Care Code Acute Code for Chg Fwd Diagnoses Status post total right knee replacement not using cement Z96.651 Primary osteoarthritis of right knee M17.11 Flexion contracture of right knee M24.561 Varus deformity, not elsewhere classified, right knee M21.161
== END 2025-07-03 15:59 | disposition home health service (06) ==
LOC: MEDSURG 10:56
PROVIDERS: Admitting Provider Specialist; PCP Electrodiagnostic Medicine; Visit Provider Specialist
PROC: 8E0Y0CZ Robotic Assisted Procedure of Lower Extremity, Open Approach (ICD-10-PCS; CPT 27447; principal; 2025-07-02 07:00)
DX: M17.11 Unilateral primary osteoarthritis, right knee (principal); M21.161 Varus deformity, not elsewhere classified, right knee; M25.761 Osteophyte, right knee; E11.9 Type 2 diabetes mellitus without complications; E78.5 Hyperlipidemia, unspecified; E66.01 Morbid (severe) obesity due to excess calories; Z68.41 Body mass index [BMI] 40.0-44.9, adult; Z79.4 Long term (current) use of insulin; Z79.84 Long term (current) use of oral hypoglycemic drugs; I10 Essential (primary) hypertension
CPT/HCPCS: 27447; 20985; 36415; 36416; 51702; 73560; 80048; 82962; 85025; 97110; 97116; 97161; 97167; A4216; C1776; G0378; J0131; J0690; J1100; J2371; J2405; J2704; J2795; J3010; J3373; J7030; J9999

== ENCOUNTER → 2025-07-15 08:40 | Outpatient (BNVA) | payer MEDICARE, OTHER, SELFPAY | PROVIDERS: PCP Electrodiagnostic Medicine; Visit Provider Specialist | DX: Z98.890 Other specified postprocedural states (principal); Z96.651 Presence of right artificial knee joint | CPT/HCPCS: 73560; 73565 ==

== ENCOUNTER 2025-07-22 07:19 | Outpatient (RCR) | payer MEDICARE, OTHER, SELFPAY | END 2025-08-16 23:59 | disposition home or self-care (01) | LOC: SPT 07:19 | PROVIDERS: Visit Provider Specialist | DX: Z47.1 Aftercare following joint replacement surgery (principal); Z96.651 Presence of right artificial knee joint | CPT/HCPCS: 97110; 97116; 97140; 97161; 97530 ==

== ENCOUNTER 2025-08-17 05:00 | Outpatient (RCR) | payer MEDICARE, OTHER, SELFPAY | END 2025-09-15 23:59 | disposition home or self-care (01) | LOC: SPT 05:00 | PROVIDERS: Visit Provider Specialist | DX: Z47.1 Aftercare following joint replacement surgery (principal); Z96.651 Presence of right artificial knee joint | CPT/HCPCS: 97110; 97530 ==

== ENCOUNTER → 2025-09-17 08:29 | Outpatient (BNVA) | payer MEDICARE, OTHER, SELFPAY | PROVIDERS: Visit Provider Podiatrist Foot & Ankle Surgery | DX: E11.42 Type 2 diabetes mellitus with diabetic polyneuropathy (principal); L60.3 Nail dystrophy; E11.8 Type 2 diabetes mellitus with unspecified complications; Z79.4 Long term (current) use of insulin; Z79.84 Long term (current) use of oral hypoglycemic drugs | CPT/HCPCS: 11721 ==

== ENCOUNTER → 2025-09-30 09:49 | Outpatient (BNVA) | payer MEDICARE, OTHER, SELFPAY | PROVIDERS: Visit Provider Specialist | DX: Z47.89 Encounter for other orthopedic aftercare (principal); Z96.651 Presence of right artificial knee joint | CPT/HCPCS: 73560; 73565; 99213 ==